=== PATIENT | male | born 1980 | race Caucasian/White ===

== ENCOUNTER 2021-01-31 14:32 | Emergency (ER) | payer MEDICAID ==
[2021-01-31 15:06] VITALS: BP 124/67; PULSE 86
--- NOTE | 2021-01-31 15:13 | EDM.PDOC ---
ED HPI GENERAL MEDICAL PROBLEM - General Chief Complaint: Upper Extremity Injury/Pain Stated Complaint: SHOULDER INJURY Time Seen by Provider: 01/31/21 15:07 Source of Information: Reports: Patient History Limitations: Reports: No Limitations - History of Present Illness INITIAL COMMENTS - FREE TEXT/NARRATIVE: This 40 yo male patient reports to the ED due to right shoulder pain for the past 2 days. The patient denies any recent trauma or abnormal movements. The patient reports he did take Tylenol with no relief. The patient describes his symptoms as a "sharp, shooting pain" when he moves his shoulder or puts any weight on his shoulder. The patient reports he attempted to get into the clinic, but there were no appointments available. Onset Date: 01/30/21 Duration: Intermittent Location: Reports: Upper Extremity, Right Quality: Reports: Ache, Sharp, Stabbing Severity: Moderate Improves with: Reports: Rest Worsens with: Reports: Movement Associated Symptoms: Reports: No Other Symptoms Treatments SPONGE CLIPPER: Reports: Acetaminophen Right Shoulder Pain Score (Numeric/FACES): 7 - Related Data Allergies Allergy/AdvReac Type Severity Reaction Status Date / Time No Known Allergies Allergy Verified 01/31/21 15:09 Home Meds: Home Meds Insulin Aspart [NovoLOG] 23 units SQ TID 03/10/15 [History] Insulin Glarg,Human.Rec.Analog [LantUS Solostar] 62 units SQ DAILY 03/10/15 [History] Past Medical History Other Dermatologic History: has 1 cm in lenght by 1.5 cm depth Review of Systems - Review of Systems Review Of Systems: Comprehensive ROS is negative, except as noted in HPI. ED EXAM, GENERAL - Physical Exam Exam: See Below Exam Limited By: No Limitations General Appearance: Alert, WD/WN, Mild Distress Eye Exam: Bilateral Eye: EOMI, Normal Inspection, PERRL Ears: Normal External Exam, Normal Canal, Hearing Grossly Normal, Normal TMs Nose: Normal Inspection, Normal Mucosa, No Blood Throat/Mouth: Normal Inspection, Normal Lips, Normal Teeth, Normal Gums, Normal Oropharynx, Normal Voice, No Airway Compromise Head: Atraumatic, Normocephalic Neck: Normal Inspection, Supple, Non-Tender, Full Range of Motion Respiratory/Chest: No Respiratory Distress, Lungs Clear, Normal Breath Sounds, No Accessory Muscle Use, Chest Non-Tender Cardiovascular: Normal Peripheral Pulses, Regular Rate, Rhythm, No Edema, No Gallop, No JVD, No Murmur, No Rub GI/Abdominal: Normal Bowel Sounds, Soft, Non-Tender, No Organomegaly, No Distention, No Abnormal Bruit, No Mass (Male) Exam: Deferred Rectal (Males) Exam: Deferred Back Exam: Normal Inspection, Full Range of Motion, NT Extremities: Arm Pain (right shoulder), Limited Range of Motion Neurological: Alert, Oriented, CN II-XII Intact, Normal Cognition, Normal Gait, Normal Reflexes Psychiatric: Normal Affect, Normal Mood Skin Exam: Warm, Dry, Intact, Normal Color, No Rash Lymphatic: No Adenopathy Course - Vital Signs Last Recorded V/S: Last Vital Signs Temp 97.9 F 01/31/21 15:05 Pulse 86 01/31/21 15:05 Resp 16 01/31/21 15:05 BP 124/67 01/31/21 15:05 Pulse Ox 97 01/31/21 15:05 - Orders/Labs/Meds Orders: Active Orders 24 hr Category Date Time Status Ketorolac [Toradol] Med 01/31/21 15:07 Once 30 mg IM ONETIME ONE Departure - Departure Time of Disposition: 15:14 Disposition: Home, Self-Care 01 Condition: Fair Clinical Impression: Right shoulder strain Qualifiers: Encounter type: initial encounter Qualified Code(s): S46.911A - Strain of unspecified muscle, fascia and tendon at shoulder and upper arm level, right arm, initial encounter - Discharge Information *PRESCRIPTION DRUG MONITORING PROGRAM REVIEWED*: Not Applicable *COPY OF PRESCRIPTION DRUG MONITORING REPORT IN PATIENT SKYLER: Not Applicable Instructions: Shoulder Pain, [id number] Care Plan Goals: The patient was advised of the examination results during the visit The patient was given an injection of Toradol during the visit. The patient was placed in a right shoulder immobilizer to help rest his shoulder. The patient was discharged with a script for Toradol (10 mg) #20 to take 1 by mouth every 6 hours. The patient should follow-up with his primary care facility by the end of next week for continued evaluation and further management. If the patient has any additional symptoms or concerns, the patient should either return to the emergency department or visit his primary care facility. Sepsis Event Note (ED) - Evaluation Sepsis Screening Result: No Definite Risk - Focused Exam Vital Signs: Vital Signs Temp Pulse Resp BP Pulse Ox 01/31/21 15:05 97.9 F 86 16 124/67 97 - My Orders Last 24 Hours: My Active Orders 01/31/21 15:07 Ketorolac [Toradol] 30 mg IM ONETIME ONE - Assessment/Plan Last 24 Hours: My Active Orders 01/31/21 15:07 Ketorolac [Toradol] 30 mg IM ONETIME ONE
[2021-01-31] MEDS: Ketorolac 30 MG/ML SDV IM ONE (15:17)
== END 2021-01-31 15:34 | disposition home or self-care (01) ==
LOC: DL.ED 14:32
DX: S46.911A Strain of unspecified muscle, fascia and tendon at shoulder and upper arm level, right arm, initial encounter (principal); X58.XXXA Exposure to other specified factors, initial encounter
CPT/HCPCS: 96372; 99283; J1885

== ENCOUNTER 2021-06-17 15:44 | Emergency (ER) | payer MEDICAID ==
[2021-06-17 15:59] VITALS: BP 136/92; PULSE 90
[2021-06-17] MEDS ORDERED: Ketorolac 30 MG/ML SDV IM ONE (16:06)
[2021-06-17] MEDS ORDERED: Acetaminophen/HYDROcodone 325-10 MG Tab PO ONE (16:06)
--- NOTE | 2021-06-17 16:54 | CR ---
EXAMINATION: Calcaneous Rt 3 views SEX: Male AGE: 41 years CLINICAL HISTORY: 41-year-old diabetic male complaining of posterior right heel pain. No recent or current injury but history of "Achilles tendon damage" in the past. Interpretation: 1. Focal soft tissue swelling posteriorly os calcis, directly over small spur at the insertion site of the Achilles tendon. 2. Large bone spur at the insertion of plantar aponeurosis base of the os calcis. 3. No foreign bodies. No cortical erosions or signs of osteomyelitis. 4. No sign of calcaneal or talar fracture/dislocation of the right hindfoot. CONCLUSION: Possible Achilles tendinitis (STS). Heel spurs.
[2021-06-17 16:56] LABS: ANION GAP 12.9 mEq/L (7-13); CHLORIDE,CL 108 mmol/L (98-107); SODIUM,NA 144 mmol/L (136-145)
--- NOTE | 2021-06-17 17:31 | EDM.PDOC ---
Scribed by Cheryl Donaldson 06/17/21 [id number] for Ian Macario MD ED HPI GENERAL MEDICAL PROBLEM - General Chief Complaint: Lower Extremity Injury/Pain Stated Complaint: RUPTURED TENDON Time Seen by Provider: 06/17/21 15:59 Source of Information: Reports: Patient, RN, RN Notes Reviewed History Limitations: Reports: No Limitations - History of Present Illness INITIAL COMMENTS - FREE TEXT/NARRATIVE: Patient presents to ED by POV with complaint of right Achilles tendon pain and swelling. Patient states that he woke up with the pain and has gotten worse throughout the day. Denies injury, lifting, bending, or stretching. Hx of remote Achilles rupture, unsure which side. Hx DM Type 2 insulin dependent. Pt rates the pain 03/25. Nothing alleviates the pain. Palpation of the distal Achilles and dorsiflexion aggravates the pain. Onset: Today Duration: Getting Worse Location: Reports: Lower Extremity, Right Quality: Reports: Ache Severity: Severe Improves with: Reports: None Worsens with: Reports: None Associated Symptoms: Reports: No Other Symptoms Right Foot Pain Score (Numeric/FACES): 6 - Related Data Allergies Allergy/AdvReac Type Severity Reaction Status Date / Time No Known Allergies Allergy Verified 06/17/21 15:54 Home Meds: Home Meds Insulin Aspart [NovoLOG] 23 units SQ TID 03/10/15 [History] Insulin Glarg,Human.Rec.Analog [LantUS Solostar] 62 units SQ DAILY 03/10/15 [History] Past Medical History Endocrine/Metabolic History: Reports: Diabetes, Type II Other Dermatologic History: has 1 cm in lenght by 1.5 cm depth Review of Systems - Review of Systems Review Of Systems: Comprehensive ROS is negative, except as noted in HPI. ED EXAM, GENERAL - Physical Exam Exam: See Below Exam Limited By: No Limitations General Appearance: Alert, WD/WN, No Apparent Distress Head: Atraumatic, Normocephalic Neck: Normal Inspection Respiratory/Chest: No Respiratory Distress Cardiovascular: Normal Peripheral Pulses Back Exam: Full Range of Motion Extremities: Normal Capillary Refill, Leg Pain (Focal tenderness to distal Rt Achilles near the insertion with mild firm overlying swelling and mild erythema without increased warmth. Intact Achilles with preserved ROM, but with pain.). No: Joint Swelling, Clarke's Sign, Increased Warmth Neurological: Alert, Oriented, No Motor/Sensory Deficits Psychiatric: Normal Mood Course - Vital Signs Last Recorded V/S: Last Vital Signs Temp 97.5 F 06/17/21 15:56 Pulse 90 06/17/21 15:56 Resp 18 06/17/21 15:56 BP 136/92 H 06/17/21 15:56 Pulse Ox 96 06/17/21 15:56 - Orders/Labs/Meds Orders: Active Orders 24 hr Category Date Time Status DME for Discharge [COMM] Routine Oth 06/17/21 17:25 Ordered Labs: Laboratory Tests 06/17/21 06/17/21 06/17/21 Range/Units 16:17 16:17 16:17 WBC 6.8 (5.0-10.0) 10^3/uL RBC 4.09 L (4.6-6.2) 10^6/uL Hgb 13.6 L (14.0-18.0) g/dL Hct 39.9 L (40.0-54.0) % MCV 97.6 D (80-100) fL MCH 33.3 (27.0-34.0) pg MCHC 34.1 (33.0-35.0) g/dL Plt Count 248 (150-450) 10^3/uL Neut % (Auto) 58.3 (42.2-75.2) % Lymph % (Auto) 31.0 (20.5-50.1) % [place] % (Auto) 8.5 H (2-8) % Eos % (Auto) 1.6 (1.0-3.0) % Baso % (Auto) 0.6 (0.0-1.0) % ESR 3 (0-15) mm/hr Sodium 144 (136-145) mmol/L Potassium 3.9 (3.5-5.1) mmol/L Chloride 108 H (98-107) mmol/L Carbon Dioxide 27 (21-32) mmol/L Anion Gap 12.9 (7-13) mEq/L BUN 10 (7-18) mg/dL Creatinine 0.86 (0.70-1.30) mg/dL Est Cr Clr Drug Dosing 121.56 mL/min Estimated GFR (MDRD) > 60 BUN/Creatinine Ratio 11.6 (No establ ref range) Glucose 113 H (70-99) mg/dL Uric Acid 7.6 H (3.5-7.2) mg/dL Calcium 8.7 (8.5-10.1) mg/dL Total Bilirubin 0.5 (0.2-1.0) mg/dL AST 20 (15-37) U/L ALT 40 (16-63) U/L Alkaline Phosphatase 77 (46-116) U/L C-Reactive Protein < 0.2 (0.0-0.9) mg/dL Total Protein 7.0 (6.4-8.2) g/dL Albumin 3.5 (3.4-5.0) g/dL Globulin 3.5 Albumin/Globulin Ratio 1.0 Meds: Medications Discontinued Medications Generic Name Dose Route Start Last Admin Trade Name Freq PRN Reason Stop Dose Admin Hydrocodone Bitart/Acetaminophen 1 tab 06/17/21 16:06 06/17/21 16:13 Acetaminophen/Hydrocodone 325-10 Mg Tab PO 06/17/21 16:07 1 tab ONETIME ONE Administration Ketorolac Tromethamine 30 mg 06/17/21 16:06 06/17/21 16:13 Ketorolac 30 Mg/Ml Sdv IM 06/17/21 16:07 30 mg ONETIME ONE Administration - Radiology Interpretation Free Text/Narrative:: Calcaneus right x-ray: Possible Achilles tendinitis. Heel spurs. See rad report. Departure - Departure Time of Disposition: 17:26 Disposition: Home, Self-Care 01 Condition: Good Clinical Impression: Right Achilles tendinitis, Hyperuricemia - Discharge Information *PRESCRIPTION DRUG MONITORING PROGRAM REVIEWED*: Not Applicable *COPY OF PRESCRIPTION DRUG MONITORING REPORT IN PATIENT SKYLER: Not Applicable Instructions: Achilles Tendinitis, Crutch Use, Adult, [id number], Low-Purine Eating Plan Forms: ED Department Discharge Additional Instructions: Rx: Naprosyn 500mg Rx: Kingsley (Hydrocodone APAP) 5mg/325mg *Do not drive while taking this medication. Use crutches as needed for pain relief. Follow up in clinic within the next one week for recheck, and ask your doctor to recheck your uric acid level. Sepsis Event Note (ED) - Evaluation Sepsis Screening Result: No Definite Risk - Focused Exam Vital Signs: Vital Signs Temp Pulse Resp BP Pulse Ox 06/17/21 15:56 97.5 F 90 18 136/92 H 96 - My Orders Last 24 Hours: My Active Orders 06/17/21 17:25 DME for Discharge [COMM] Routine - Assessment/Plan Last 24 Hours: My Active Orders 06/17/21 17:25 DME for Discharge [COMM] Routine I have read and agree with the documentation that has been completed regarding this visit. By signing this record, I attest that the documentation was completed in my physical presence and is an accurate record of the encounter.
== END 2021-06-17 17:45 | disposition home or self-care (01) ==
LOC: DL.ED 15:44
DX: M76.61 Achilles tendinitis, right leg (principal); E79.0 Hyperuricemia without signs of inflammatory arthritis and tophaceous disease; E11.9 Type 2 diabetes mellitus without complications; Z79.4 Long term (current) use of insulin
CPT/HCPCS: 36415; 73650; 80053; 84550; 85025; 85651; 86140; 96372; 99283; A9270; J1885

== ENCOUNTER 2021-12-19 13:02 | Emergency (ER) | payer MEDICAID ==
[2021-12-19 13:26] VITALS: BP 150/95; PULSE 77
== END 2021-12-19 14:39 | disposition home or self-care (01) ==
LOC: DL.ED 13:02
DX: S80.11XA Contusion of right lower leg, initial encounter (principal); E11.9 Type 2 diabetes mellitus without complications; Z79.4 Long term (current) use of insulin; W20.8XXA Other cause of strike by thrown, projected or falling object, initial encounter
CPT/HCPCS: 73590-RT; 99283

== ENCOUNTER 2023-11-17 05:54 | Day surgery (SDC) | payer MEDICAID ==
[2023-11-17] MEDS ORDERED: fentaNYL 100 MCG/2 ML SDV IV ONE (05:55)
[2023-11-17] MEDS ORDERED: Midazolam 1 MG/ML 2 ML SDV IV ONE (05:55)
[2023-11-17] MEDS ORDERED: Midazolam 1 MG/ML 2 ML SDV ONE (06:01)
[2023-11-17] MEDS ORDERED: fentaNYL 100 MCG/2 ML SDV ONE (06:01)
[2023-11-17] MEDS: Dextrose 5%-0.45% NaCl 1,000 ML IV SCH (06:22)
[2023-11-17] MEDS: fentaNYL 100 MCG/2 ML SDV IV ONE ×2 (06:49)
[2023-11-17] MEDS: Midazolam 1 MG/ML 2 ML SDV IV ONE ×6 (06:50→07:00)
[2023-11-17 07:49] VITALS: PULSE 85
[2023-11-17 08:37] VITALS: BP 132/74
== END 2023-11-17 08:25 | disposition home or self-care (01) ==
LOC: DL.ENDO 05:54
PROVIDERS: ATTEND Internal Medicine Gastroenterology
DX: Z12.11 Encounter for screening for malignant neoplasm of colon (principal); D12.4 Benign neoplasm of descending colon; E11.9 Type 2 diabetes mellitus without complications; E66.9 Obesity, unspecified; Z68.37 Body mass index [BMI] 37.0-37.9, adult
CPT/HCPCS: 45385; J2250; J3010; J7042